=== PATIENT | female | born 1985 | race African-American/Black ===

== ENCOUNTER 2024-09-17 19:23 | Emergency (ER) | payer SELFPAY ==
[~2024-09-17] VITALS: Ht 165.1 cm; Wt 68.0 kg
[2024-09-17 19:55] VITALS: BP 106/70; PULSE 86; RESP 18; TEMP 98; O2SAT 98
[2024-09-17] MEDS ORDERED: KETOROLAC 15MG/ML VIAL IM ONE (23:00)
== END 2024-09-18 00:41 | disposition left against medical advice (07) ==
LOC: ER 19:23
DX: S09.90XA Unspecified injury of head, initial encounter (principal); M54.50 Low back pain, unspecified; V49.49XA Driver injured in collision with other motor vehicles in traffic accident, initial encounter; Y93.89 Activity, other specified; Y92.89 Other specified places as the place of occurrence of the external cause; Y99.8 Other external cause status
CPT/HCPCS: 99283